=== PATIENT | male | born 1965 | race Caucasian/White ===

== ENCOUNTER 2017-03-10 12:27 | Emergency (ER) | payer SELFPAY ==
[2017-03-10] MEDS ORDERED: Ibuprofen 800 MG TAB ONE (12:59)
--- NOTE | 2017-03-10 13:48 | RAD ---
PA AND LATERAL CHEST X-RAY: 03/10/2017 HISTORY: Cough and fever since Wednesday with new onset dizziness. COMPARISON: None available. FINDINGS: The cardiac silhouette and pulmonary vasculature are within normal limits. There is linear scarring present in the right lung apex. The lungs are otherwise clear. The linear scarring in the right fede g apex was noted on the CT thorax from 10/08/2013. Minimal degenerative changes are seen in the spin e. IMPRESSION: No acute cardiopulmonary process. POS: OFF
== END 2017-03-10 13:35 | disposition home or self-care (01) ==
LOC: NAV ERS 12:27
DX: J11.1 Influenza due to unidentified influenza virus with other respiratory manifestations (principal); F17.210 Nicotine dependence, cigarettes, uncomplicated
CPT/HCPCS: 71046; 94640; J7620